=== PATIENT | female | born 1940 | race Caucasian/White ===

== ENCOUNTER 2017-11-27 06:00 | Day surgery (SDC) | payer OTHER ==
[2017-11-27] MEDS ORDERED: CEFAZOLIN 1 GM INJ (07:00)
[2017-11-27] MEDS ORDERED: ROCURONIUM 50 MG INJ ×2 (07:00→07:17)
[2017-11-27] MEDS ORDERED: METOCLOPRAMIDE 10 MG INJ (07:00)
[2017-11-27] MEDS ORDERED: DEXAMETHASONE 4 MG/ML 1 ML INJ (07:00)
[2017-11-27] MEDS ORDERED: MIDAZOLAM 1 MG/ML 2 ML INJ (07:11)
[2017-11-27] MEDS ORDERED: FENTAnyl 50 MCG/ML VIAL (07:11)
[2017-11-27] MEDS ORDERED: LIDOCAINE 2% (SDV) 5 ML INJ (07:17)
[2017-11-27] MEDS ORDERED: SUCCINYLCHOLINE CHLORIDE 100 MG/5 ML SYG IV (07:17)
[2017-11-27] MEDS ORDERED: PROPOFOL 20 ML (07:17)
[2017-11-27] MEDS ORDERED: ONDANSETRON 4 MG INJ (07:17)
[2017-11-27] MEDS ORDERED: ROPIVACAINE 0.5 % 30 ML VIAL (07:19)
[2017-11-27] MEDS ORDERED: DIPHENHYDRAMINE 50 MG INJ IV (08:00)
[2017-11-27] MEDS ORDERED: FENTAnyl 50 MCG/ML VIAL IV (08:00)
[2017-11-27] MEDS ORDERED: ONDANSETRON 4 MG INJ IV (08:00)
[2017-11-27] MEDS ORDERED: LABETALOL HCL 20MG INJ IV (08:00)
[2017-11-27] MEDS ORDERED: HYDROmorphONE 1 MG/5 ML IV SYRINGE IV (08:00)
[2017-11-27] MEDS ORDERED: IPRATROPIUM (NEB) 0.5 MG/2.5 ML AMP HHN (08:00)
[2017-11-27] MEDS ORDERED: MEPERIDINE 25 MG INJ IV (08:00)
[2017-11-27] MEDS: LACTATED RINGER'S 1,000 ML IV (08:10)
[2017-11-27] MEDS ORDERED: HYDROmorphONE 2 MG/ML SYG (08:38)
[2017-11-27] MEDS ORDERED: LABETALOL HCL 20MG INJ (08:42)
[2017-11-27] MEDS: morphine SULFATE/PF (10 MG/10 ML) INJ (09:01)
[2017-11-27] MEDS: EPINEPHrine 1 MG/ML 30 ML INJ IRR (09:01)
[2017-11-27] MEDS ORDERED: SUGAMMADEX SODIUM 200 MG/2 ML VIAL IV (10:25)
[2017-11-27] MEDS: hydrALAzine 20 MG INJ IV (11:08)
[2017-11-27] MEDS: HYDROmorphONE 1 MG/5 ML IV SYRINGE IV (11:13)
[2017-11-27] MEDS: FENTAnyl 50 MCG/ML VIAL IV (11:13)
[2017-11-27] MEDS ORDERED: CEFAZOLIN 2 GM/50 ML (PMX) 50 ML IVPB (13:00)
== END 2017-11-27 13:40 | disposition home or self-care (01) ==
LOC: SDS 06:00
DX: M75.101 Unspecified rotator cuff tear or rupture of right shoulder, not specified as traumatic (principal); S43.431D Superior glenoid labrum lesion of right shoulder, subsequent encounter; X58.XXXD Exposure to other specified factors, subsequent encounter; M65.811 Other synovitis and tenosynovitis, right shoulder; E11.9 Type 2 diabetes mellitus without complications; E78.5 Hyperlipidemia, unspecified; Z79.82 Long term (current) use of aspirin; Z79.84 Long term (current) use of oral hypoglycemic drugs
CPT/HCPCS: 29807; 82962